=== PATIENT | female | born 1940 | race Caucasian/White ===

== ENCOUNTER 2017-07-11 16:15 | Day surgery (SDC) | payer MEDICARE, OTHER ==
[2017-07-11] MEDS ORDERED: CEFAZOLIN 1,000 MG ONE ×2 (17:16→18:20)
[2017-07-11] MEDS ORDERED: ROPIvacaine/PF 0.5%, 20 ML ONE (17:16)
[2017-07-11] MEDS ORDERED: BACITRACIN 50,000 UNIT ONE (17:16)
[2017-07-11] MEDS ORDERED: GENTAMICIN 80 MG/2 ML ONE (17:16)
[2017-07-11] MEDS ORDERED: MIDAZOLAM 1 MG/ML, 2ML ONE (17:26)
[2017-07-11] MEDS ORDERED: FENTANYL PF 250 MCG/5ML ONE (17:27)
[2017-07-11 17:49] VITALS: BP 114/71
[2017-07-11] MEDS ORDERED: PROPOFOL 10 MG/ML, 20ML ONE (18:20)
[2017-07-11] MEDS ORDERED: DEXAMETHASONE 4 MG/ML, 1ML ONE (18:20)
[2017-07-11] MEDS ORDERED: ONDANSETRON 2MG/ML, 2ML ONE (18:20)
[2017-07-11] MEDS ORDERED: ONDANSETRON 2MG/ML, 2ML IVPush PRN (18:30)
[2017-07-11] MEDS ORDERED: PROMETHAZINE 25 MG/ML, 1ML IV PRN (18:30)
[2017-07-11] MEDS ORDERED: METOCLOPRAMIDE 5 MG/ML, 2ML IV PRN (18:30)
[2017-07-11] MEDS ORDERED: FENTANYL PF 100 MCG/2ML IV PRN (18:30)
[2017-07-11] MEDS ORDERED: LABETALOL 5MG/ML, 20ML IV PRN (18:30)
[2017-07-11] MEDS ORDERED: MEPERIDINE/PF 25MG/0.5ML IVPush PRN (18:30)
[2017-07-11] MEDS ORDERED: ACETAMINOPHEN 325 MG TABLET PO PRN (18:30)
[2017-07-11] MEDS ORDERED: PLEASE ENTER HEIGHT AND WEIGHT MC SCH ×2 (19:00→21:00)
== END 2017-07-11 21:00 | disposition home or self-care (01) ==
LOC: OR 16:15 → 4NOR 16:45 → OR 21:00
PROVIDERS: ATTEND Plastic Surgery
DX: N64.1 Fat necrosis of breast (principal); Z85.3 Personal history of malignant neoplasm of breast; Z87.891 Personal history of nicotine dependence; Z88.0 Allergy status to penicillin
CPT/HCPCS: 14000; J0690; J1100; J2250; J2405; J2704; J3010; J2795; J1580